=== PATIENT | male | born 1975 | race Caucasian/White ===

== ENCOUNTER 2020-01-22 21:35 | Emergency (ER) | payer MEDICAID ==
[~2020-01-22] VITALS: Ht 170.2 cm; Wt 100.0 kg
[2020-01-22] MEDS ORDERED: CEFAZOLIN 1,000 MG IM ONE (22:00)
[2020-01-22] MEDS ORDERED: LIDOCAINE 2%, 20ML SQ ONE (22:00)
[2020-01-22] MEDS ORDERED: OXYcodone/APAP 5/325MG TABLET PO ONE (22:00)
[2020-01-22] MEDS ORDERED: CEFAZOLIN 1,000 MG ONE (22:11)
[2020-01-22] MEDS ORDERED: LIDOCAINE-MPF 1%, 5ML ONE (22:11)
[2020-01-22] MEDS ORDERED: OXYcodone/APAP 5/325MG TABLET ONE (22:11)
[2020-01-22] MEDS ORDERED: ACETAMINOPHEN 500 MG TABLET PO ONE (22:30)
[2020-01-22] MEDS ORDERED: ACETAMINOPHEN 500 MG TABLET ONE (22:37)
--- NOTE | 2020-01-22 22:44 | NUR ---
PT MEDICATED PER EMAR. 5 RIGHTS ADDRESSED. IZA PHAM AT BEDSIDE PERFORMING I&D
[2020-01-22 23:40] VITALS: BP 142/90
--- NOTE | 2020-01-22 23:58 | NUR ---
Patient/Caregiver given discharge instructions and they have confirmed that they understand the instructions. Patient ambulatory with steady gait.
== END 2020-01-22 23:59 | disposition home or self-care (01) ==
LOC: ED 21:58
DX: L03.115 Cellulitis of right lower limb (principal); L02.415 Cutaneous abscess of right lower limb; R50.9 Fever, unspecified; F17.210 Nicotine dependence, cigarettes, uncomplicated
CPT/HCPCS: 10060; 96372; 99283; J0690

== ENCOUNTER 2020-01-23 11:18 | Emergency (ER) | payer MEDICAID ==
[~2020-01-23] VITALS: Ht 170.2 cm; Wt 91.4 kg
[2020-01-23 11:49] VITALS: BP 133/101
--- NOTE | 2020-01-23 15:08 | NUR ---
NO ANSWER IN LOBBY
--- NOTE | 2020-01-23 15:40 | NUR ---
NO ANSWER IN LOBBY
--- NOTE | 2020-01-23 15:47 | NUR ---
NO ANSWER IN LOBBY
== END 2020-01-23 15:54 | disposition left against medical advice (07) ==
LOC: ED 14:08
DX: L02.415 Cutaneous abscess of right lower limb (principal); L98.9 Disorder of the skin and subcutaneous tissue, unspecified; R50.9 Fever, unspecified; Z48.01 Encounter for change or removal of surgical wound dressing
CPT/HCPCS: 99281

== ENCOUNTER 2020-01-23 22:36 | Emergency (ER) | payer MEDICAID ==
[~2020-01-23] VITALS: Ht 170.2 cm; Wt 91.9 kg
[2020-01-23 22:44] VITALS: BP 149/102
== END 2020-01-23 23:11 | disposition left against medical advice (07) ==
LOC: ED 22:45
DX: L02.415 Cutaneous abscess of right lower limb (principal)
CPT/HCPCS: 99281